=== PATIENT | female | born 1990 | race African-American/Black ===

== ENCOUNTER 2023-12-06 17:40 | Emergency (ER) | payer SELFPAY ==
[2023-12-06] MEDS ORDERED: Lidocaine 1% PF 5 ML VIAL ONE (18:02)
[2023-12-06] MEDS ORDERED: cefTRIAXone (ROCEPHIN) 1 GM VIAL ONE (18:02)
[2023-12-06] MEDS ORDERED: Azithromycin 250 MG TAB ONE (18:02)
[2023-12-07 03:16] LABS: Chlamydia by PCR, Vaginal Swab Not Detected (NotDetected); GC by PCR, Vaginal Swab Not Detected (NotDetected)
== END 2023-12-06 19:10 | disposition home or self-care (01) ==
LOC: ERS 17:40
DX: N89.8 Other specified noninflammatory disorders of vagina (principal); F17.290 Nicotine dependence, other tobacco product, uncomplicated; I10 Essential (primary) hypertension; Z20.2 Contact with and (suspected) exposure to infections with a predominantly sexual mode of transmission
CPT/HCPCS: 87480; 87491; 87510; 87591; 87660; 96372; 99283; J0696